=== PATIENT | female | born 1985 | race Caucasian/White ===

== ENCOUNTER 2016-11-10 10:30 | Inpatient (IN) | payer MEDICAID ==
[2016-11-10 10:58] VITALS: BMI 26.6
[2016-11-10] MEDS ORDERED: ceFAZolin 2 GM in Sodium Chloride 0.9% 100 ML IVPB ONE (10:58)
[2016-11-10] MEDS: Lactated Ringer's 2,000 ML IV SCH ×2 (11:00→12:00)
[2016-11-10 11:57] LABS: BASO % 0.2 % (0.0-2.0); EOS # 0.2 K/uL (0.0-0.7); EOS % 1.8 % (0.0-4.0); HEMOGLOBIN 13.3 g/dL (12.0-16.0); LYMPH # 1.7 K/uL (1.0-4.3); LYMPH % 14.4 % (20.0-40.0); MEAN CELL VOLUME 92.8 fl (81.0-99.0); MEAN CORPUSCULAR HEMOGLOBIN 31.1 pg (27.0-31.0); MEAN CORPUSCULAR HGB CONC 33.5 g/dL (33.0-37.0); MEAN PLATELET VOLUME 9.3 fl (7.2-11.7); MONO # 0.7 K/uL (0.0-0.8); MONO % 5.7 % (0.0-10.0); NEUT # 9.4 K/uL (1.8-7.0); NEUT % 77.9 % (50.0-75.0); NRBC % 0.1 % (0.0-0.0); RBC 4.27 Mil/uL (3.80-5.20); RED CELL DISTRIBUTION WIDTH 14.1 % (11.5-14.5); WHITE BLOOD COUNT 12.1 K/uL (4.8-10.8)
[2016-11-10] MEDS ORDERED: Oxytocin 30 units/LR 500ML 30 U/500 ML BAG IV ONE (12:14)
[2016-11-10] MEDS ORDERED: Morphine 1 mg/ml preservative-free Inj(Duramorph) ONE (12:14)
[2016-11-10] MEDS ORDERED: DiphenhydrAMINE 50 mg/ml Inj IVP PRN ×2 (12:16→18:20)
[2016-11-10] MEDS ORDERED: Morphine 1 mg/ml preservative-free Inj(Duramorph) EPI ONE (12:16)
[2016-11-10 14:12] LABS: SQUAMOUS EPITHIAL 8 /hpf (0-5); URINE BACTERIA RARE (<OCC); URINE BILIRUBIN NEGATIVE (NEGATIVE); URINE BLOOD MODERATE (NEGATIVE); URINE CLARITY SLIGHTY-CLOUDY (Clear); URINE COLOR AMBER (YELLOW); URINE GLUCOSE (UA) NEG (Normal); URINE LEUKOCYTE ESTERASE NEG Leu/uL (Negative); URINE NITRATE NEGATIVE (NEGATIVE); URINE PROTEIN 30 mg/dL (NEGATIVE); URINE UROBILINOGEN 0.2-1.0 mg/dL (0.2-1.0)
[2016-11-10] MEDS ORDERED: Oxytocin 30 units/LR 500ML 30 U/500 ML BAG IV SCH (14:25)
[2016-11-10] MEDS ORDERED: Oxycodone/Acetaminophen 5/325 mg Tab PO PRN (14:25)
--- NOTE | 2016-11-10 15:26 | OBHP ---
Datetime: 11/10/2016 15:22 IP Adm Impression: Term, intrauterine ; No Active Labor IP Admit Plan: Admit to unit; Initiate Section protocol Admit Comment, IP Provider: The patient presents to labor and delivery for elective repeat section. Patient reports good movement no vaginal bleeding or leakage of fluid patient states p renatal care has been unremarkable Past medical history none Past surgical history 3 previous sections and cystectomy via laparotomy No known drug allergies Medications vitamins Social history denies alcohol tobacco use Obstetrical history see record Review of systems patient denies headache chest pain shortness of breath palpitations nausea vomit ing diarrhea dysuria vaginal bleeding.: Tolerance easy bruisability musculoskeletal or neurological c omplaints Vital signs stable afebrile Physical exam see notes Intrauterine at 39 weeks Informed consent obtained for repeat section and bilateral tubal ligation Discussed risks benefits alternatives to surgery discussed bleeding infection organ injury to sarath l bladder or ureter hernia. Patient was aware that tubal ligation is irreversible patient also aware that ectopic would be most likely to occur if she were to get . Patient agreed to p [facility] patient's wishes respected We'll admit for postop care and pain management Pelvic Type - PN: Adequate Extremities - PN: Normal Abdomen - PN: Normal Back - PN: Not Done Breast - PN: Not Done Lungs - PN: Normal Heart - PN: Normal Thyroid - PN: Normal Neurologic - PN: Normal HEENT - PN: Normal General - PN: Normal Presentation-Admit: Vertex FHR - Baseline A Provider: 145 Gestation - Est Wks by US: 39.0 EGA AdmitDate IP: 39.4 Vital Signs Provider: Reviewed IP Chief Complaint: Scheduled Section NICHD Variability Prov Fetus A: Moderate 6-25bpm NICHD Accel Fetus A IP Provider: [id number] Genitourinary Exam: Not Done DTRs - PN: Normal
--- NOTE | 2016-11-10 15:49 | PCM.OP ---
Operative Report - Operative Report Date of Surgery/Procedure: 11/10/16 Time of Surgery/Procedure: 11:00 Surgeon: Nimesh Dick Communication Consultant: Nishi Leon Anesthesia/Sedation: spinal Pre-Operative Diagnosis: history of previous section 3desires tubal ligation intrauterine at 39 weeks Post-Operative Diagnosis: same Indication for Surgery: previous section 3 intrauterine at 39 weeks Operative Findings: baby boy in vertex presentation Apgars 9 and 10 normal uterus tubes and ovaries weight 3075 g baby boy Apgars 9 and 10 Procedure/Operation Description: repeat section with tubal ligationafter informed consent was obtained the pat the patient was then prepped and draped in the usual sterile fashion a Pfannenstiel skin incision was then made with ng layer of fascia. The fascia was nicked in the midline and extended laterally with the curved Bautista sc. The superior aspect of the fascial incisio attention was then turned to the inferio elevated up and the rectus muscles were disse. The muscles were in midline the peritoneum identified and entered sharply with the Metzenbaum scis The superior aspect of the incision was sent superiorlyd inferiorly with good visualization of the bladder. The bladder blade was then inserted the vesicouterine peritoneum identified and ent.The bladder flap was then createdmanually. A low transverse incision was then made with t the incision was then extended laterally wi the infant's head was delivered atraumatical. The placenta was then removed manually the uterus was cleared cleared of all clots and debris is. The uterine incision was repaired with 0 SECOND LAYER OF THE SAME SUTURE WAS USED TO OBTAIN EX>The abdomen was then copiously irrigated nai was removed with the suction device hemostasis was noted. Attention was then turned to the right fallopian tube was grasped with a Babcockand elevated upard and a knuckle of tube was suture ligated with free tie was then wrapped around the knuckle of tube and the knuckle was excised and sent to pathology. Similar procedure was performed on the left. The uterus was then returned to the abdomen hemostasis was noted. Both tubal stumps were reexamined and hemostasis was noted. The peritoneum was then closed with 2-0 THE MUSCLE WAS REAPPROXIMATED WITH ) Vicryl in an the fascia was closed with 0 Vicryl in a running fashion the skin was closed with 40 on a All sponge lap nee and instrument counts were correct 2 the patient was taken to recovery room in awake and stable condition. Dr. Lam was E broker assistant of the procedure she was helpful in delivering the creating exposure obtaining hemostasis and closure of the patientthe procedure would not have been possible without her assistance Estimated Blood Loss: 800 Sponge/Instrument Count: instrument sponge count correct 3 Complications: none Specimen: none Discharge & Condition: stable
[2016-11-10] MEDS ORDERED: Pneumococcal 23-Valent Vaccine IM ONE (18:26)
[2016-11-10] MEDS ORDERED: Lactated Ringer's 1,000 ML IV SCH (23:00)
[2016-11-11 05:22] LABS: HEMOGLOBIN 11.5 g/dL (12.0-16.0); MEAN CELL VOLUME 94.1 fl (81.0-99.0); MEAN CORPUSCULAR HEMOGLOBIN 30.7 pg (27.0-31.0); MEAN CORPUSCULAR HGB CONC 32.6 g/dL (33.0-37.0); RBC 3.74 Mil/uL (3.80-5.20); RED CELL DISTRIBUTION WIDTH 13.9 % (11.5-14.5); WHITE BLOOD COUNT 15.3 K/uL (4.8-10.8)
--- NOTE | 2016-11-11 08:51 | OBPPN ---
Datetime: 11/11/2016 08:48 PP Pain Prov: Within normal limits PP Nausea Prov: Denies PP Flatus Prov: Yes PP BM Prov: No PP Abdomen/Uterus Prov: Normal PP Lochia Prov: Normal PP Extremities Prov: Normal PP C/S Incision Prov: Normal PP Progress Prov: Normal PP Comments Phys Exam Prov: Incision: wet steri strips removed and abdominal pad changed PP Impression Prov: Normal progression PP Plan Prov: Continue present management PP Progress Note Prov: POD 1 s/p Repeat c/s, BTL, doing well, breast and bottle feeding Continue current magament Vital Signs Provider PP: Reviewed
[2016-11-11] MEDS: Oxycodone/Acetaminophen 5/325 mg Tab PO PRN ×2 (18:44→23:18)
[2016-11-12] MEDS: Oxycodone/Acetaminophen 5/325 mg Tab PO PRN ×4 (03:30→20:14)
--- NOTE | 2016-11-12 22:06 | OBPPN ---
Datetime: 11/12/2016 22:03 PP Pain Prov: Within normal limits PP Nausea Prov: Denies PP Flatus Prov: Yes PP BM Prov: No PP Breasts Prov: Normal PP Heart Prov: Normal PP Lungs Prov: Normal PP Abdomen/Uterus Prov: Normal PP Lochia Prov: Normal PP Vulva/Perineum Prov: Normal PP CVA Tenderness Prov: Normal PP Extremities Prov: Normal PP C/S Incision Prov: Normal PP Progress Prov: Normal PP Impression Prov: Normal progression PP Plan Prov: Continue present management PP Progress Note Prov: H/H S/P C/S day 2 anticiapate discharge tmrw Vital Signs Provider PP: Reviewed; Within Normal Limits
[2016-11-13] MEDS: Oxycodone/Acetaminophen 5/325 mg Tab PO PRN ×2 (01:01→08:52)
--- NOTE | 2016-11-13 09:01 | OBPPN ---
Datetime: 11/13/2016 09:00 PP Pain Prov: Within normal limits PP Nausea Prov: Denies PP Flatus Prov: Yes PP BM Prov: No PP Breasts Prov: Normal PP Heart Prov: Normal PP Lungs Prov: Normal PP Abdomen/Uterus Prov: Normal PP Lochia Prov: Normal PP Vulva/Perineum Prov: Normal PP CVA Tenderness Prov: Normal PP Extremities Prov: Normal PP C/S Incision Prov: Normal PP Impression Prov: Normal progression PP Plan Prov: Discharge PP Progress Note Prov: A: S/P c/S day 3 PLAN: discharge today Follow up 1-2w Vital Signs Provider PP: Reviewed; Within Normal Limits
--- NOTE | 2016-11-13 09:02 | OBDCSUM ---
Datetime: 11/13/2016 09:00 Discharged to, Provider: Home Follow up at, Provider: Markie Disch Instr Activity: Normal activity Disch Instr Diet: Regular Discharge Instructions, Provider: Routine instructions given Discharge Diagnosis, Provider: Term Delivered Follow up in weeks, Provider: 1-2w Disch Referrals: None Contraception discussed, Prov: Yes Disch Activity Restrictions: No exercising; No lifting; No sexual activity; Nothing in vagina - Inte rcourse, tampons, douche
--- NOTE | 2016-11-13 09:03 | NBCIR ---
Datetime: 11/10/2016 10:44 Preformed by:: Alyssa Saini DO Circumcision Request: Yes Consent Signed: Written Consent Signed and on Chart Position: Supine; Papoose Board Circumcision Time Out: Correct Patient Identity; Correct Side and Site are Marked; Accurate Procedur e Consent Form; Agreement on Procedure to be Done; Correct Patient Position Site Prep: Povidine Iodine Circumcision Date/Time: 11/13/2016 08:40 Equipment Used: Cleanifyo Clamp [place] Size: 1.1 Systemic Medications: Oral Medication Other Systemic Medications: Sweet Ease Complications: None Status: Excellent Cosmetic Outcome; Tolerated Procedure Well; Hemostatic Parents Present: None Procedure Note: Mother requested circumcision to be performed. She understood that this is an elect dayana procedure with risks/complications. Informed consent obtained. Infant tolerated well Datetime: 11/10/2016 10:30 PT-NAME: REUBEN MARINO
== END 2016-11-13 12:25 | disposition home or self-care (01) | DRG 371 ==
LOC: H.EROB2 10:30 → H.L&D 10:34 → H.EROB2 10:59 → H.L&D 11:01 → H.OB/GYN 18:31
PROVIDERS: ADMIT Obstetrics & Gynecology Gynecology; ATTEND Obstetrics & Gynecology Gynecology
PROC: 10D00Z1 Extraction of Products of Conception, Low, Open Approach (ICD-10-PCS; principal; 2016-11-10)
PROC: 0UL70ZZ Occlusion of Bilateral Fallopian Tubes, Open Approach (ICD-10-PCS; 2016-11-10)
PROC: 4A1HXCZ Monitoring of Products of Conception, Cardiac Rate, External Approach (ICD-10-PCS; 2016-11-10)
PROC: 3E0234Z Introduction of Serum, Toxoid and Vaccine into Muscle, Percutaneous Approach (ICD-10-PCS; 2016-11-10)
DX: O34.211 Maternal care for low transverse scar from previous cesarean delivery (principal); Z30.2 Encounter for sterilization; Z37.0 Single live birth; Z23 Encounter for immunization; Z3A.39 39 weeks gestation of pregnancy